=== PATIENT | male | born 1990 ===

== ENCOUNTER 2019-11-18 21:38 | Emergency (ER) | payer MEDICAID ==
[~2019-11-18] VITALS: Ht 167.6 cm; Wt 94.2 kg
[2019-11-18 21:41] VITALS: BP 127/89
[2019-11-18] MEDS ORDERED: COLCHICINE 0.6 MG CAPSULE PO ONE (22:00)
[2019-11-18] MEDS ORDERED: COLCHICINE 0.6 MG CAPSULE ONE (22:01)
== END 2019-11-18 22:53 | disposition home or self-care (01) ==
LOC: ED 22:30
DX: M10.071 Idiopathic gout, right ankle and foot (principal); R00.0 Tachycardia, unspecified; Z72.9 Problem related to lifestyle, unspecified; F17.210 Nicotine dependence, cigarettes, uncomplicated
CPT/HCPCS: 99283